=== PATIENT | male | born 1955 | race Two or more races ===

== ENCOUNTER → 2016-08-20 | Outpatient (CLI) | payer MEDICARE, OTHER | LOC: SP 10:39 | PROVIDERS: ATTEND Internal Medicine Nephrology | DX: R09.89 Other specified symptoms and signs involving the circulatory and respiratory systems (principal); I10 Essential (primary) hypertension | CPT/HCPCS: 93880 ==

== ENCOUNTER → 2016-09-11 | Outpatient (CLI) | payer MEDICARE, OTHER | LOC: RAD 08:56 | PROVIDERS: ATTEND Internal Medicine Nephrology | DX: M32.10 Systemic lupus erythematosus, organ or system involvement unspecified (principal); C64.9 Malignant neoplasm of unspecified kidney, except renal pelvis; I10 Essential (primary) hypertension | CPT/HCPCS: 93975 ==

== ENCOUNTER → 2018-06-24 | Outpatient (CLI) | payer MEDICARE, OTHER ==
--- NOTE | 2018-06-24 16:33 | RADIOLOGY REPORT (SQ) ---
EXAM DESCRIPTION: U/S RETROPERITON (RENAL/AORTA) COMPLETED DATE/TIME: 06/24/2018 4:12 pm REASON FOR STUDY: J32.9 CHRONIC SINUSITIS, UNSPECIFIED N17.9 ACUTE KIDNEY FAILURE, UNSPECIFIED Q60. 0 RENAL AGENESIS, UNILATERAL COMPARISON: None. TECHNIQUE: Dynamic and static grayscale images acquired of the kidneys and bladder and recorded on P ACS. Additional selected color Doppler and spectral images recorded. LIMITATIONS: None. FINDINGS: RIGHT KIDNEY: Surgically absent. LEFT KIDNEY: Normal size, 14.9 cm. Normal echogenicity. No solid or suspicious masses. No hydronephr osis. There is a prominent focus of shadowing in the lower calices. BLADDER: Incompletely distended. No masses. Left ureteral jet is present. OTHER FINDINGS: Prostate gland is enlarged, measuring 5.6 x 3.7 x 3.7 cm. IMPRESSION: There appears to be a left lower calyceal calculus. No ureteral obstruction is present. Prostatic enlargement. TECHNICAL DOCUMENTATION: JOB ID: [id number] [employer]- All Rights Reserved Reading location - IP/workstation name: [email or web address]
== END ==
LOC: RAD 15:16
PROVIDERS: ATTEND Internal Medicine Nephrology
DX: N17.9 Acute kidney failure, unspecified (principal); Q60.0 Renal agenesis, unilateral; N40.0 Benign prostatic hyperplasia without lower urinary tract symptoms; N20.0 Calculus of kidney
CPT/HCPCS: 76770